=== PATIENT | male | born 1955 | race African-American/Black ===

== ENCOUNTER 2023-05-01 06:38 | Emergency (ER) | payer OTHER, MEDICAID ==
[~2023-05-01] VITALS: Ht 177.8 cm; Wt 95.0 kg
[2023-05-01 06:44] VITALS: O2SAT 100
[2023-05-01 07:08] LABS: BASOPHILS % 0.2 % (0.0-2.0); HEMATOCRIT. 38.1 % (42.0-52.0); HEMOGLOBIN. 12.2 g/dL (14.0-18.0); LYMPHOCYTES % 12.8 % (20.0-50.0); MEAN CORPUSCULAR HEMOGLOBIN 26.7 pg (28.0-32.0); MEAN CORPUSCULAR HGB CONC 31.9 g/dL (31.0-37.0); MEAN CORPUSCULAR VOLUME 83.8 fL (80.0-94.0); MEAN PLATELET VOLUME 7.8 fl (7.4-10.4); MONOCYTES % 13.6 % (2.0-8.0); NEUTROPHILS % 71.4 % (40.0-76.0); PLATELET 193 x1000/uL (130-400); RED BLOOD CELL COUNT 4.55 mill/uL (4.7-6.1); RED CELL DISTRIBUTION WIDTH 17.5 % (11.6-14.6); WHITE BLOOD COUNT 5.7 x1000/uL (4.5-11.0)
[2023-05-01 07:32] LABS: ALANINE AMINOTRANSFERASE 10 IU/L (10-49); ALBUMIN 4.2 g/dL (3.2-4.8); ASPARTATE AMINOTRANSFERASE 16 IU/L (<34); BILIRUBIN TOTAL 0.7 mg/dL (0.1-1.0); CALCIUM 9.2 mg/dL (8.7-10.4); CARBON DIOXIDE 25 mEq/L (21-32); CHLORIDE 109 mEq/L (98-107); CREATININE 1.2 mg/dL (0.6-1.3); GLUCOSE 108 mg/dL (70-105); POTASSIUM 4.2 mEq/L (3.5-5.1); PROTEIN TOTAL 7.3 g/dL (6.0-8.3); SODIUM 139 mEq/L (136-145); UREA NITROGEN BLOOD 18 mg/dL (9-23)
[2023-05-01 08:29] VITALS: TEMP 98.7
[2023-05-01 08:34] LABS: CLARITY URINE CLEAR (CLEAR); COLOR URINE YELLOW (YELLOW); GLUCOSE URINE NEGATIVE (NEGATIVE); KETONES URINE NEGATIVE (NEGATIVE); LEUKOCYTE ESTERASE URINE TRACE (NEGATIVE); NITRITE URINE NEGATIVE (NEGATIVE); OCCULT BLOOD URINE NEGATIVE (NEGATIVE); PROTEIN URINE 1+ (NEGATIVE); SPECIFIC GRAVITY URINE 1.022 (1.005-1.030)
[2023-05-01 08:46] LABS: RBC URINE 0-2 /hpf (0-2); SQUAMOUS EPITHELIAL CELL URINE 2+ /lpf (RARE/1+)
[2023-05-01 08:47] LABS: BACTERIA URINE TRACE
[2023-05-01] MEDS: CEFTRIAXONE 1GM PREMIX 50 ML IV ONE (10:09)
[2023-05-01 11:45] VITALS: BP 154/81; PULSE 69; RESP 18
== END 2023-05-01 12:04 | disposition admitted as inpatient to this hospital (09) ==
LOC: ER 06:41 → CANBEDREQ 10:32 → ER 12:04
DX: R26.2 Difficulty in walking, not elsewhere classified (principal); N30.00 Acute cystitis without hematuria; I10 Essential (primary) hypertension; Z98.890 Other specified postprocedural states
CPT/HCPCS: 99285; 96365; 80053; 81003; 85025; 36415; 93005; J0696

== ENCOUNTER 2023-08-26 23:48 | Emergency (ER) | payer OTHER, MEDICAID ==
[~2023-08-26] VITALS: Ht 177.8 cm; Wt 122.0 kg
[2023-08-26 23:53] VITALS: O2SAT 100
[2023-08-27] MEDS ORDERED: MORPHINE SULFATE 4 MG/ML INJ (FOR IV/IM USE) IV ONE (00:15)
[2023-08-27] MEDS: SODIUM CHLORIDE 0.9% 500 ML IV ONE (00:15)
[2023-08-27 00:34] LABS: BASOPHILS % 0.5 % (0.0-2.0); DIFFERENTIAL COMMENT 0; EOSINOPHILS % 6.5 % (0.0-5.0); HEMATOCRIT. 38.9 % (42.0-52.0); HEMOGLOBIN. 12.3 g/dL (14.0-18.0); LYMPHOCYTES % 26.3 % (20.0-50.0); MEAN CORPUSCULAR HEMOGLOBIN 26.4 pg (28.0-32.0); MEAN CORPUSCULAR HGB CONC 31.6 g/dL (31.0-37.0); MEAN CORPUSCULAR VOLUME 83.7 fL (80.0-94.0); MEAN PLATELET VOLUME 7.4 fl (7.4-10.4); MONOCYTES % 9.6 % (2.0-8.0); NEUTROPHILS % 57.1 % (40.0-76.0); PLATELET 206 x1000/uL (130-400); RED BLOOD CELL COUNT 4.64 mill/uL (4.7-6.1); RED CELL DISTRIBUTION WIDTH 17.8 % (11.6-14.6); WHITE BLOOD COUNT 4.8 x1000/uL (4.5-11.0)
[2023-08-27 00:35] LABS: CHLORIDE 115 mEq/L (98-107); POTASSIUM 4.4 mEq/L (3.5-5.1); SODIUM 144 mEq/L (136-145)
[2023-08-27 00:36] LABS: CALCIUM 9.1 mg/dL (8.7-10.4); CARBON DIOXIDE 23 mEq/L (21-32)
[2023-08-27 00:41] LABS: CREATININE 1.2 mg/dL (0.6-1.3); GLUCOSE 96 mg/dL (70-105)
[2023-08-27 00:42] LABS: ETHANOL BLOOD < 10 mg/dL (<10); UREA NITROGEN BLOOD 18 mg/dL (9-23)
[2023-08-27 00:43] LABS: CREATINE KINASE 67 IU/L (46-171)
[2023-08-27 00:44] LABS: PHOSPHORUS 3.8 mg/dL (2.5-4.9)
[2023-08-27 01:26] LABS: INR 0.9; PROTHROMBIN TIME 10.6 sec (9.6-11.0)
[2023-08-27] MEDS: MORPHINE SULFATE 4 MG/ML INJ (FOR IV/IM USE) IV NR (02:09)
[2023-08-27 03:06] LABS: CLARITY URINE CLEAR (CLEAR); COLOR URINE YELLOW (YELLOW); GLUCOSE URINE NEGATIVE (NEGATIVE); KETONES URINE NEGATIVE (NEGATIVE); LEUKOCYTE ESTERASE URINE 1+ (NEGATIVE); NITRITE URINE POSITIVE (NEGATIVE); OCCULT BLOOD URINE NEGATIVE (NEGATIVE); PH URINE 5.5 (4.5-8.0); PROTEIN URINE NEGATIVE (NEGATIVE); SPECIFIC GRAVITY URINE 1.016 (1.005-1.030); UROBILINOGEN URINE 0.2 E.U./dL (0.2-1.0)
[2023-08-27 03:13] LABS: *AMPHETAMINES SCREEN URINE NEGATIVE (NEGATIVE); *BARBITURATES SCREEN URINE NEGATIVE (NEGATIVE); *COCAINE SCREEN URINE NEGATIVE (NEGATIVE); ECSTASY MDMA SCREEN URINE NEGATIVE (NEGATIVE); METHADONE URINE SCREEN NEGATIVE (NEGATIVE); OPIATES URINE SCREEN PRESUMPTIVE POSITIVE (NEGATIVE)
[2023-08-27 03:49] LABS: BACTERIA URINE 2+; RBC URINE 0-2 /hpf (0-2); RENAL EPITHELIAL CELLS URINE 1+ /lpf; SQUAMOUS EPITHELIAL CELL URINE 1+ /lpf (RARE/1+)
[2023-08-27] MEDS: CEPHALEXIN 250MG CAPSULE PO NR (06:18)
[2023-08-27] MEDS: KETOROLAC 15MG/ML VIAL IV ONE (06:34)
[2023-08-27 06:35] VITALS: BP 141/87; PULSE 58; RESP 16; TEMP 98.4
[2023-08-27] MEDS: MAGNESIUM 1 G PREMIX 100 ML IV NR (06:35)
[2023-08-27 06:56] LABS: *BENZODIAZEPINES SCREEN URINE NEGATIVE (NEGATIVE); CANNABINOID URINE SCREEN NEGATIVE (NEGATIVE); PHENCYCLIDINE URINE SCREEN NEGATIVE (NEGATIVE)
== END 2023-08-27 07:44 | disposition short-term general hospital (02) ==
LOC: ER 08-27 00:04
DX: E83.42 Hypomagnesemia (principal); N39.0 Urinary tract infection, site not specified; Z00.00 Encounter for general adult medical examination without abnormal findings
CPT/HCPCS: 80305; 80048; 81003; 80320; 82550; 83735; 84100; 85025; 85610; 36415; 93971; 71045; 96361; 96365; 96375; 99285; J1885; J3475; J2270; J7040; G0480